=== PATIENT | female | born 1960 | race Caucasian/White ===

== ENCOUNTER 2016-09-17 06:22 | Emergency (ER) | payer OTHER ==
[~2016-09-17] VITALS: Ht 170.2 cm; Wt 78.0 kg
[~2016-09-17 06:22] MED LIST: ABILIFY2 MG ORAL; KLONOPIN0.5 MG ORAL; VENLAFAXINE HCL25 MG ORAL
[2016-09-17] MEDS ORDERED: LAMICTAL200 MG ORAL (06:38)
[2016-09-17 06:42] VITALS: BP 135/87
[2016-09-17] MEDS ORDERED: TdaP Vaccine 0.5ml Syr IM ONE ×2 (06:44→09:00)
--- NOTE | 2016-09-17 06:53 | Emergency Room Report ---
History of Present Illness General Chief Complaint: Laceration Source: Patient Present Illness HPI The patient slipped and fell in the bathtub. She hit her back and also side of her head. She did not lose consciousness. She has a cut there that had some bleeding. There was controlled with local pressure. She complains about pain. Just has a little pain of back. "It looked like a drop wire builder movie". Pain is 7/ 10, sharp and aching, scalp and some of neck. Constant. The patient has a history of a cavernous hemangioma which is stable. The patient's tetanus is up-to-date. No fevers, NVD, dysuria. No depression. 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 [employer]: No : 0 Para: 0 Reviewed Nursing Documentation: PMH: Agreed, PSxH: Agreed Nursing Documentation-PMH Past Medical History: No Stated History History Of Psychiatric Problem: Yes - Depression Review of Systems All Other Systems: negative except mentioned in HPI Physical Exam Vital Signs Date Time Temp Pulse Resp B/P Pulse Ox O2 Delivery O2 Flow Rate FiO2 09/17/16 06:32 97.9 84 14 140/85 98 Room Air Sp02 EP Interpretation: reviewed, normal General Appearance: well appearing, no apparent distress Head: other - L scalp laceration Eyes: bilateral eye EOMI, bilateral eye PERRL, bilateral eye normal inspection ENT: hearing grossly normal, normal voice Neck: full range of motion, supple, no bony tend Respiratory: chest non-tender, lungs clear, normal breath sounds Cardiovascular #1: regular rate, rhythm, no edema Gastrointestinal: normal bowel sounds, non tender, soft Musculoskeletal: back normal - with slight tenderness R lower back near CVA area, gait/station normal, normal range of motion Neurologic: alert, oriented x3, epic cupid specialists III-XII nml as tested, motor strength/tone normal, DTRs symmetric, sensory intact, cerebellar normal, normal gait, speech normal, other - dysnomia occasionally Psychiatric: mood/affect normal - see treatment Reflexes: 2+ knee (R), 2+ knee (L) Skin: normal color, warm/dry, laceration - L scalp to bone, 4 cm Procedures Laceration/Wound Repair Laceration/Wound Repair : Consent: Verbal Wound Location: head Wound's Depth, Shape: into muscle, linear, flap Wound Length (cm): 4 Wound Explored: clean Irrigated w/ Saline (ccs): 100 Betadine Prep?: Yes Anesthesia: Lidocaine w/ Epi Wound Debrided: none - hair removed from wound Wound Repaired With: sutures Suture Size/Type: 5:0, proline Layer Closure?: Yes Deep Layer Suture Size/Type: 3:0, other - vicryl Number Deep Layer Sutures: 2 - periostium and fascia Sterile Dressing Applied?: Yes Splint Applied?: No Patient Tolerated: Well Complications: None Medical Decision Making Diagnostic Impression: Primary Impression: Head injury Qualified Codes: S09.90XA - Unspecified injury of head, initial encounter Additional Impressions: Concussion Qualified Codes: S06.0X0A - Concussion without loss of consciousness, initial encounter Scalp laceration Qualified Codes: S01.01XA - Laceration without foreign body of scalp, initial encounter ER Course Patient with head and back injury post fall. Denies LOC. Ddx; concussion, laceration, contusions, amongst others. Needs tetanus and sutures. Declines pain medicine. Sutured. 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 Rest of neuro normal. Will get CT CT unremarkable. Patient stable for outpatient observation and treatment. Brother here to pick her up. CT/MRI/US Diagnostic Results CT/MRI/US Diagnostic Results : Imaging Test Ordered: head Impression nl brain, bones and ST Last Vital Signs Date Time Temp Pulse Resp B/P Pulse Ox O2 Delivery O2 Flow Rate FiO2 09/17/16 08:55 97.9 88 14 135/87 99 Room Air Status: improved Disposition: HOME, SELF-CARE Condition: Improved Scripts Bacitracin (Bacitracin) 28.4 Gm Oint...g. 1 APPLIC TOPIC BID, #10 GM Prov: Raj Villalobos M.D. 09/17/16 Tramadol Hcl* (ULTRAM*) 50 Mg Tablet 50 MG ORAL Q6H Y for For Pain, #6 TAB 0 Refills Prov: Raj Villalobos M.D. 09/17/16 Raj Villalobos M.D. Sep 17, 2016 06:53
[2016-09-17] MEDS ORDERED: Lidocaine 1% 10mg/ml/Epi 0.005mg/ml 30ml vial INJ ONE (07:00)
[2016-09-17] MEDS ORDERED: Bacitracin Oint UD TOPIC ONE (08:00)
[2016-09-17] MEDS ORDERED: TRAMADOL HCL50 MG ORAL (08:26)
[2016-09-17] MEDS ORDERED: BACITRACIN15 GM TOPIC (08:27)
[2016-09-17 08:55] VITALS: BP 135/87
--- NOTE | 2016-09-18 08:59 | Diagnostic Imaging Report ---
Indication: Trauma with pain Technique: Continuous helical CT scanning of the head was performed without intravenous contrast material. Axial and coronal 5 mm sections were generated. Dose: Total Dose Length Product - DLP [address] Dose Index - CTDIvol(s) 70.38 mGy. Comparison:None. Findings: The ventricular system is normal in size and configuration. There is no shift of midline structures. No abnormal extra-axial fluid collections are noted. There is no evidence of intracerebral bleeding. No other abnormal high or low density areas are noted within the brain. Impression: Normal CT scan of the head without contrast material. The CT scanner at [facility] is accredited by the [employer] and the scans are performed using protocols designed to limit radiation exposure to as low as reasonably achievable to attain images of sufficient resolution adequate for diagnostic evaluation.
== END 2016-09-17 08:55 | disposition home or self-care (01) ==
LOC: EMR 07:00
DX: S01.01XA Laceration without foreign body of scalp, initial encounter (principal); S06.0X0A Concussion without loss of consciousness, initial encounter; W19.XXXA Unspecified fall, initial encounter; Y92.002 Bathroom of unspecified non-institutional (private) residence as the place of occurrence of the external cause; Z23 Encounter for immunization; F32.9 Major depressive disorder, single episode, unspecified
CPT/HCPCS: 70450; 90471; 90715